=== PATIENT | female | born 1990 | race Caucasian/White ===

== ENCOUNTER → 2016-08-15 | Outpatient (CLI) | payer OTHER ==
--- NOTE | 2016-08-15 13:14 | MAMMOGRAPHY REPORT ---
ULTRASOUND OF RIGHT BREAST: 08/15/2016 CLINICAL HISTORY: 26-year-old woman who noticed a lump in her right breast approximately 3 months ago , and her physician confirmed recently on physical exam. No change in size since she first noticed i t. No skin erythema, thickening or nipple discharge. No family history of breast cancer. COMPARISON: No prior exams were available for comparison. FINDINGS: Targeted ultrasound was performed in the area of palpable lump pointed out by the patient (approximate 9:00 through 10:00 right breast, 2 cm from the nipple). On palpation, there is a firm r idge of tissue in the area of concern pointed out by the patient. On ultrasound, there is dense glan dular tissue without evidence of an underlying suspicious solid or cystic mass. IMPRESSION: ACR BI-RADS CATEGORY 2: BENIGN There is no sonographic evidence of malignancy or other suspicious sonographic abnormality in the are a of palpable ridge in the 9:00 through 10:00 right breast, pointed out by the patient. This could s imply represent dense glandular tissue. However, clinical follow-up is recommended, as biopsy of a c linically suspicious mass should not be precluded by negative imaging. These results and recommendations were discussed with the patient and her at the time of the exam. Selena Villavicencio M.D. ay/:08/15/2016 10:43:40 Cryogenics Engineer: Dr. Selena Villavicencio, [facility] letter sent: Normal 1/2 BI-RADS Code: ACR BI-RADS Category 2: Benign
== END | disposition home or self-care (01) ==
LOC: C.MAMM 08:30
PROVIDERS: ATTEND Nurse Practitioner Obstetrics & Gynecology
DX: N63 Unspecified lump in breast (principal); N64.4 Mastodynia